=== PATIENT | female | born 1980 | race Caucasian/White ===

== ENCOUNTER 2016-12-07 15:14 | Emergency (ER) | payer MEDICARE ==
[~2016-12-07] VITALS: Ht 167.6 cm; Wt 90.7 kg
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
[2016-12-07 16:40] LABS: PREG TEST PT QUAL NEGATIVE (NEG)
[2016-12-07 17:05] VITALS: BP 122/72
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
[2016-12-07] MEDS ORDERED: CYCL-331 PO (17:42)
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
== END 2016-12-07 17:45 | disposition home or self-care (01) ==
LOC: ER 15:14
DX: M54.41 Lumbago with sciatica, right side (principal); M54.2 Cervicalgia; E11.9 Type 2 diabetes mellitus without complications; K21.9 Gastro-esophageal reflux disease without esophagitis; K58.9 Irritable bowel syndrome, unspecified; M79.7 Fibromyalgia; M19.90 Unspecified osteoarthritis, unspecified site; Z88.8 Allergy status to other drugs, medicaments and biological substances; V43.52XA Car driver injured in collision with other type car in traffic accident, initial encounter; Y93.89 Activity, other specified; Y99.8 Other external cause status; Y92.89 Other specified places as the place of occurrence of the external cause
CPT/HCPCS: 36415; 72100; 72125; 84703; 99285-25